=== PATIENT | female | born 1980 | race Caucasian/White ===

== ENCOUNTER 2017-02-06 22:53 | Inpatient (IN) | payer MEDICAID ==
[2017-02-06 23:12] VITALS: BP 100/59
[2017-02-07 09:38] LABS: % BASOPHILS 0.7 % (0.0-2.0); % EOSINOPHILS 4.8 % (0.0-5.0); % LYMPHOCYTES 21.8 % (20.0-50.0); % MONOCYTES 7.1 % (2.0-10.0); % NEUTROPHILS 65.6 % (40.0-80.0); HEMATOCRIT 30.6 % (35.0-45.0); MEAN CELL VOLUME 72.1 fl (81-100); MEAN CORPUSCULAR HEMOGLOBIN 23.5 pg (27.0-31.0); MEAN CORPUSCULAR HGB CONC 32.7 pg (28.0-36.0); MEAN PLATELET VOLUME 6.5 fl; NEUTROPHILE ABSOLUTE 4.7 Th/cmm (1.8-8.0); PLATELET COUNT 276 Th/cmm (150-400); RED BLOOD COUNT 4.24 Mil/cmm (3.80-5.10); RED CELL DISTRIBUTION WIDTH 16.5 % (11.5-20.0); WHITE BLOOD COUNT 7.3 Th/cmm (4.8-10.8)
[2017-02-07 09:58] LABS: ALB/GLOB RATIO 1.5 (1.0-1.8); ALKALINE PHOSPHATASE 57 U/L (34-104); ANION GAP 0.9 (7.0-16.0); BILIRUBIN,TOTAL 0.5 mg/dL (0.3-1.0); BUN - UREA NITROGEN 17 mg/dL (7-25); BUN/CREATININE RATIO 24.3; CALCIUM SERUM 9.3 mg/dL (8.6-10.3); CARBON DIOXIDE 25.7 mEq/L (21.0-31.0); CHLORIDE 111 mEq/L (98-107); CREATININE - SERUM 0.7 mg/dL (0.6-1.2); GLUCOSE 77 mg/dL (70-105); POTASSIUM SERUM 3.6 mEq/L (3.5-5.1); SGOT 15 U/L (13-39); SGPT/ALT 11 U/L (7-52); SODIUM SERUM 134 mEq/L (136-145)
[2017-02-07] MEDS ORDERED: Hydrocodone/APAP 10 mg/325 mg Tab PO PRN (12:02)
[2017-02-07] MEDS ORDERED: Magnesium Hydroxide (MOM) 30 mL UDC PO PRN (12:02)
[2017-02-07] MEDS ORDERED: Maalox 30 mL Cup PO PRN (12:02)
--- NOTE | 2017-02-07 15:25 | History & Physical ---
CHIEF COMPLAINT: Rule out TIA. HISTORY OF PRESENT ILLNESS: The patient is a 36-year-old female who presented to [facility] with left arm, leg and facial numbness. The patient developed weakness in left arm and leg while driving approximately 1730 yesterday. Complains if mild dizziness. The patient states she also has slurred speech. The patient recalls some chest pain, onset of symptoms, but no shortness of breath, diabetes, nausea, vomiting. The patient denies headache or blurry vision. ALLERGIES: No known allergies. SOCIAL HISTORY: No reports of smoking or drug use. MEDICATIONS: See medical form. PAST MEDICAL HISTORY: Negative. REVIEW OF SYSTEMS: See history of present illness. PHYSICAL EXAMINATION: GENERAL: The patient is awake, alert, nontoxic in appearance. VITAL SIGNS: On admission are as follows: Temperature 98.2, pulse 76, blood pressure per nursing, respiratory rate 18, O2 sat on room air. HEENT: Normocephalic, atraumatic. Extraocular movements intact. Oropharynx clear. NECK: Supple. No thyromegaly. No lymphadenopathy. RESPIRATORY: Clear. No wheezes or rhonchi. CARDIOVASCULAR: S1, S2. No murmurs, rubs, or gallops. GASTROINTESTINAL: Soft, nontender, nondistended. Positive bowel sounds. GENITOURINARY: No CVA tenderness. No suprapubic tenderness. BACK: No midline tenderness. EXTREMITIES: Equal pulses bilaterally. No cyanosis, clubbing. NEUROLOGIC: Cranial nerves 2 through intact. Extraocular movements are intact. Sensation intact. Neurovascular intact. Bilateral muscle strength grossly normal. At [facility], the patient had lower facial droop. LABORATORY DATA: On admission, CBC: WBC of 7.3, hemoglobin 10.0, hematocrit 30.6, platelet count of 276. No left shift noted. Chemistry, sodium 134, potassium 3.6, chloride 111, bicarbonate 25, anion gap 0.9, BUN 17, creatinine 0.7. GFR is more than 60. Glucose 77, calcium is 9.3, total bilirubin 0.5, AST 15, ALT 11, alkaline phosphatase is 57, creatinine kinase 51, troponin 0.01. Total protein 7.1, albumin 4.2, globulin 2.9. CT scan done at [facility] showed no significant abnormality. The patient had an evaluation by Neurology at [facility], concern with possible TIA vs psychogenic. RECOMMENDATION: To start the patient on antithrombotics with aspirin 325 mg daily. Obtain liver panel. We will start the patient on statin and will manage the patient's blood pressure. Also recommendation from Neurology for echo, MRI, MRA and rehabilitation. The patient admitted to telemetry unit, seen by Dr. Vicki Cottrell. We will obtain Neurology and Cardiology consultation. Follow recommendations from Neurology at [facility]. JOB# [id number] MTDD
[2017-02-08 07:39] LABS: % BASOPHILS 0.8 % (0.0-2.0); % EOSINOPHILS 7.8 % (0.0-5.0); % LYMPHOCYTES 27.2 % (20.0-50.0); % MONOCYTES 6.9 % (2.0-10.0); % NEUTROPHILS 57.3 % (40.0-80.0); HEMATOCRIT 30.6 % (35.0-45.0); HEMOGLOBIN 10.1 gm/dL (11.7-15.5); MEAN CELL VOLUME 72.1 fl (81-100); MEAN CORPUSCULAR HEMOGLOBIN 23.8 pg (27.0-31.0); MEAN CORPUSCULAR HGB CONC 33.1 pg (28.0-36.0); MEAN PLATELET VOLUME 7.7 fl; NEUTROPHILE ABSOLUTE 4.3 Th/cmm (1.8-8.0); PLATELET COUNT 279 Th/cmm (150-400); RED BLOOD COUNT 4.24 Mil/cmm (3.80-5.10); RED CELL DISTRIBUTION WIDTH 15.9 % (11.5-20.0); WHITE BLOOD COUNT 7.5 Th/cmm (4.8-10.8)
[2017-02-08 08:04] LABS: ANION GAP 9.2 (7.0-16.0); BUN - UREA NITROGEN 20 mg/dL (7-25); BUN/CREATININE RATIO 28.6; CARBON DIOXIDE 21.7 mEq/L (21.0-31.0); CHLORIDE 108 mEq/L (98-107); CREATININE - SERUM 0.7 mg/dL (0.6-1.2); GLUCOSE 93 mg/dL (70-105); POTASSIUM SERUM 3.9 mEq/L (3.5-5.1); SODIUM SERUM 135 mEq/L (136-145)
[2017-02-08 11:47] LABS: CHOLESTEROL 124 mg/dL (<200); TRIGLYCERIDES 112 mg/dL (<150)
--- NOTE | 2017-02-08 16:10 | Consultation ---
REFERRING PHYSICIAN: Dr. Vicki Cottrell. This patient was seen at the courtesy of Dr. Vicki Cottrell as the patient is coming with chest pain and also possible TIA. She was admitted at [facility] with history of having sudden onset of left arm, leg and face numbness and weakness also in the left arm and the leg while driving. It was associated with mild dizziness. She has workup done over there and CT scan did not show any acute changes. She was offered tPA, but she refused. In view of that, no further treatment was given on acute basis, so the patient was transferred here. On coming over here, she has been complaining of chest pain on the left side. According to the history, she never had this pain before and this pain is like a sharp to squeezing type and it is localized. No association with any thing. Pain is not related to any position or swallowing or eating, but hurts when she touches that area or taking the deep breath. No other associated symptoms like feeling short of breath, dizzy, lightheaded, nausea, vomiting, cold, sweats, fevers, chills or rigors. She denies of any similar type of pain before. PAST MEDICAL HISTORY: No history of hypertension, diabetes mellitus, or any other medical problems. MEDICATIONS: None. ALLERGIES: No known drug allergies. REVIEW OF SYSTEMS: Some allergies and itching and some hyperpigmentation of the skin, which has been getting treatment through her primary care physician. PHYSICAL EXAMINATION: VITAL SIGNS: Normal. Temperature 97.6, heart rate 61-70s range, respiratory rate 17-19 range, and O2 sat is 99% on room air, blood pressure is 103/50. HEENT: Normal. NECK: Supple. JVP is flat. No lymphadenopathy. Thyroid not palpable. Carotids are equally palpable, but no bruit. LUNGS: Equal bilaterally with chest wall tenderness present and reproducible pain on the left anterior chest area and pectoral muscle, which is reproducible. Similar type of pain as she has been describing in the same area. Lungs are clinically clear. CARDIOVASCULAR: PMI not palpable. Heart sounds are normal. No gallop or murmur is appreciated. ABDOMEN: Soft, no palpable mass. CENTRAL NERVOUS SYSTEMS: Grossly normal. EXTREMITIES: No edema. No cyanosis. Peripheral pulses are equal bilaterally. EKG was normal sinus rhythm. No acute changes were seen. IMPRESSION: 1. Chest pain, atypical, doubt any acute coronary syndrome as troponins x 2 are normal, waiting for the third one. This is secondary to anterior chest wall syndrome. I doubt any acute coronary syndrome. 2. Cardiac risks factors are none. PLAN: I agree with present management. I will do this serial troponin, EKG, also get the echocardiogram done to evaluate any underlying mitral valve disorder especially in view of questionable TIA. Also, rule out any other underlying cardiac etiology for the TIA or embolic versus thrombotic. The patient will also be monitored closely for any conduction abnormalities. No atrial fibrillation. although has not been shown at all. We will get EKGs and echocardiogram as mentioned. Pain management. Correction of electrolytes as needed. Further workup and management will be initiated as needed form cardiac point of view. Thank you very much Dr. Finch for this kind referral and I will along with you during her acute cardiac problems. JOB# [id number] MTDD
[2017-02-08] MEDS: Hydrocodone/APAP 5mg/325mg Tab PO PRN (17:42)
--- NOTE | 2017-02-08 18:20 | Cardiology ---
PROCEDURE: Echocardiogram. REFERRING PHYSICIAN: Stef Cottrell M.D. INDICATIONS: TIA, chest pain and palpitations. M-Mode measurements are as follows. Aortic root dimension in diastole is 2.5 cm. Aortic valve systolic separation is 2.0 cm. Left atrial dimension in systole is 3.3 cm. EP septal separation is 0.47 cm and mitral valve E/A ratio is 1.7. Left ventricular dimension in diastole is 4.6 and in systole 3.1 cm with ejection fraction of 61%. Interventricular septal thickness in diastole 1.0 cm and LV posterior wall thickness in diastole is 0.9 cm. Doppler and color Doppler shows that all chambers are normal in dimension. LV dimension and second wall motion are normal. No pericardial effusion is present. All the valves are normal in thickness and motion in end diastole as well as end systole. Left ventricular outflow tract VMax is 1.14 meter per second and aortic valve VMax is 1. meter per second. Aortic valve systolic pressure gradient is 9 mmHg. Right ventricular systolic pressure is 27.8 mmHg. CONCLUSION: 1. LV dimension and second wall motion are normal with ejection fraction of 61%. 2. Mild pulmonary hypertension present. 3. Otherwise normal study for the age. JOB# [id number]
--- NOTE | 2017-02-09 03:02 | Consultation ---
HISTORY OF PRESENT ILLNESS: This is 36-year-old female. She was driving. She started feeling kind of numbness on the left side. She started feeling tightness on the chest. She felt dizzy, kind of unsteady. She felt the speech was slurred. She felt kind of legs were weak. She had difficulty with coordination. The patient says her symptoms lasted for sometime. Went to [facility] and transferred here. PAST MEDICAL HISTORY: She is doing well otherwise, no major medical problems. PAST SURGICAL HISTORY: None. REVIEW OF SYSTEMS: On direct questioning with the patient. No marked headache. Chest pain as above, paraesthesias, numbness, tingling, dizziness and weakness as above. No abdominal pain and no nausea or vomiting. PHYSICAL EXAMINATION: VITAL SIGNS: Temperature 98.4, blood pressure 130/72 and pulse is 76. NECK: Supple. No bruits. CARDIOVASCULAR: Heart sounds S1 and S2. LUNGS: Clear. ABDOMEN: Soft. NEUROLOGIC: The patient is awake and alert. She speaks mainly Dominican, by the business applications developer she gives history. She knew what day, month and year. CRANIAL NERVES: Pupils react to light. Full eye movement. No nystagmus. No facial weakness. MOTOR: She lifts both arms up. No weakness. Legs equal reflexes 1+. INVESTIGATIONS: CT scan head negative. IMPRESSION: The patient with ____ symptoms consistent with possible in the posterior circulation with paresthesia, weakness and coordination. Chest pain. MANAGEMENT: The patient is young with no clear-cut predisposing etiologies to confer her symptomology. We will get an MRI of brain done and MRA head and neck. I would recommend the patient have cardiac evaluation also. I will go ahead and do a lipid profile. The patient on antiplatelet medications for the time being. JOB# [id number]
--- NOTE | 2017-02-09 04:18 | Admit Criteria Form ---
Admit Criteria Forms - Admit Criteria Diagnosis: TELEMETRY CARE Telemetry Admission Guidelines (Place 'X' for any and all applicable criteria): Admission to telemetry [A] may be indicated for ANY ONE of the following(1)(2)(3 )(4)(5): [ ]I. Cardiac disease, including ANY ONE of the following (9)(10)(11)(12)(13 ): [ ]a) Postacute AZ [ ]b) Low-risk patients with ST-segment elevation AZ who have undergone successful percutaneous coronary intervention [ ]c) Unstable angina [ ]d) Suspected AZ (until it is ruled out) [ ]e) Post cardiac surgery (first 48 to 72 hours unless complications occur) [ ]f) Acute arrhythmias (including significant tachycardia or bradycardia) [B] [ ]g) Firing of an implantable cardioverter defibrillator [C] [ ]h) Suspected pacemaker or implantable cardioverter defibrillator malfunction (10) [ ]i) New administration or adjustment of an antiarrhythmic drug [D ] [ ]j) Child admitted for acute congestive heart failure [ ]j) Long QT syndrome [ ]k) Advanced heart block (eg, second-degree Mobitz type II, third- degree heart block) [ ]l) Acute myocarditis or pericarditis [ ]m) Short-term (ambulatory or inpatient) monitoring after a cardiac procedure as indicated by ANY ONE of the following [E]: [ ]i) Electrophysiologic studies [ ]ii) Percutaneous coronary intervention with stent placement [ ]iii) Pacemaker placement with cardiac conduction defect [ ]iv) Implantable cardiac defibrillator placement [ ]II. Drug overdose or poisoning with substance that causes arrhythmias or QT prolongation (eg, phenothiazines, sympathomimetic agents, cyclic antidepressants, digitalis, antiarrhythmic drugs)(15) [ ]III. Short-term (ambulatory or inpatient) monitoring after therapeutic or diagnostic procedure requiring conscious sedation or anesthesia (eg, endoscopy, elective cardioversion) [X ]IV. Acute cerebrovascular even[F](18) [ ]V. Massive blood transfusion (eg, at least 10 units of packed red blood cells in 24 hours) [ ]. Variceal bleeding after endoscopy, sclerotherapy, or IV vasopressin [ ]VII. Uncorrected electrolyte abnormalities associated with an increased risk of dangerous arrhythmia [G]; examples include [ ]a) Hyperkalemia with attributable ECG changes [ ]b) Potassium greater than 6.5 mmol/L (mEq/L) in a patient without history of chronic renal disease [ ]c) Prolonged QT attributed to hypokalemia, hypomagnesemia, or hypocalcemia [ ]VIII.Unexplained syncope or other neurologic event suspected of being due to arrhythmia due to a finding that increases risk; examples include(19)(20)(21): [ ]a) High-risk ECG findings (eg, bifascicular block, bradycardia, abnormal QT interval, ventricular pre- excitation) [ ]b) History of previous syncope due to arrhythmia [ ]c) Abnormal ventricular function (eg, reduced ejection fraction ) [ ]d) Exertional or supine syncope [ ]e) Concerning syncope characteristics (eg, sudden loss of consciousness without prodrome) [ ]f) Family history of sudden [ ]g) Use of arrhythmogenic medication [ ]h) Suspected cardiac ischemia [ ]i) Known channelopathy (eg, long QT syndrome, Brugada syndrome, or catecholaminergic paroxysmal ventricular tachycardia) [ ]j) Known structural heart disease (eg, hypertrophic cardiomyopathy , severe valvular disease) [ ]k) Palpitations preceding syncope The original [email or web address] content created by [email or web address] has been revised. The portions of the content which have been revised are identified through the use of italic text or in bold, and [facility] has neither reviewed nor approved the modified material. All other unmodified content is copyright [email or web address]. Please see references footnoted in the original [email or web address] edition 2016 Admit Criteria Met?: Yes
[2017-02-09 07:13] LABS: % BASOPHILS 0.7 % (0.0-2.0); % EOSINOPHILS 6.4 % (0.0-5.0); % LYMPHOCYTES 25.8 % (20.0-50.0); % MONOCYTES 5.8 % (2.0-10.0); % NEUTROPHILS 61.3 % (40.0-80.0); HEMATOCRIT 31.2 % (35.0-45.0); HEMOGLOBIN 10.3 gm/dL (11.7-15.5); MEAN CELL VOLUME 72.7 fl (81-100); MEAN PLATELET VOLUME 7.1 fl; NEUTROPHILE ABSOLUTE 5.1 Th/cmm (1.8-8.0); PLATELET COUNT 274 Th/cmm (150-400); RED CELL DISTRIBUTION WIDTH 16.3 % (11.5-20.0); WHITE BLOOD COUNT 8.3 Th/cmm (4.8-10.8)
[2017-02-09 07:30] LABS: ANION GAP 9.7 (7.0-16.0); BUN - UREA NITROGEN 24 mg/dL (7-25); CALCIUM SERUM 9.1 mg/dL (8.6-10.3); CARBON DIOXIDE 25.2 mEq/L (21.0-31.0); CHLORIDE 106 mEq/L (98-107); CREATININE - SERUM 0.6 mg/dL (0.6-1.2); GLUCOSE 93 mg/dL (70-105); POTASSIUM SERUM 3.9 mEq/L (3.5-5.1); SODIUM SERUM 137 mEq/L (136-145)
--- NOTE | 2017-02-09 09:53 | Progress Notes ---
DATE: 02/08/2017 SUBJECTIVE: The patient is awake and alert. The patient complains of right chest pain on left precordial site. The patient has been evaluated by Neurology. The patient ordered for MRI by Neurology. The patient is receiving inpatient rehab therapy. OBJECTIVE: VITAL SIGNS: Temperature is 98.6, pulse 61, blood pressure per nursing, respiratory rate 19, and O2 sat is 99% on room air. CARDIOVASCULAR: S1 and S2. RESPIRATORY: Clear. GASTROINTESTINAL: Soft. Positive bowel sounds. LABORATORY DATA: Hematology: WBC is 7.5, hemoglobin peer labs, hematocrit per labs, platelet count of 239, and 7% eosinophils. Chemistry: Sodium 135, potassium 3.9, chloride 108, bicarb 21, anion gap 9.2, BUN 20, and creatinine 0.7. GFR more than 60, glucose 93, and calcium 9.0. MICROBIOLOGY: MRSA screening from February 06 negative. RADIOLOGY: No new results. ASSESSMENT: 1. Possible transient ischemic attack. 2. Chest pain (rule out acute coronary syndrome). 3. Anemia. 4. Hyponatremia. PLAN: Continue current medication and treatment. Obtain labs in a.m. Awaiting MRI results. Further recommendations per consultations. JOB# [id number] LATHA
[2017-02-09] MEDS ORDERED: IOHEXOL 300MG/ML 100 ML VIAL IVP ONE (11:00)
[2017-02-09] MEDS ORDERED: IOHEXOL 300MG/ML 50 ML VIAL PO ONE (11:00)
[2017-02-10 05:56] LABS: % BASOPHILS 0.9 % (0.0-2.0); % EOSINOPHILS 6.7 % (0.0-5.0); % LYMPHOCYTES 25.8 % (20.0-50.0); % MONOCYTES 6.7 % (2.0-10.0); % NEUTROPHILS 59.9 % (40.0-80.0); HEMATOCRIT 29.9 % (35.0-45.0); HEMOGLOBIN 9.7 gm/dL (11.7-15.5); MEAN CELL VOLUME 72.2 fl (81-100); MEAN CORPUSCULAR HEMOGLOBIN 23.5 pg (27.0-31.0); MEAN CORPUSCULAR HGB CONC 32.5 pg (28.0-36.0); NEUTROPHILE ABSOLUTE 4.8 Th/cmm (1.8-8.0); PLATELET COUNT 296 Th/cmm (150-400); RED BLOOD COUNT 4.15 Mil/cmm (3.80-5.10); RED CELL DISTRIBUTION WIDTH 16.1 % (11.5-20.0); WHITE BLOOD COUNT 7.9 Th/cmm (4.8-10.8)
[2017-02-10 06:10] LABS: ANION GAP 9.1 (7.0-16.0); BUN - UREA NITROGEN 21 mg/dL (7-25); CARBON DIOXIDE 22.8 mEq/L (21.0-31.0); CHLORIDE 107 mEq/L (98-107); CREATININE - SERUM 0.6 mg/dL (0.6-1.2); GLUCOSE 102 mg/dL (70-105); POTASSIUM SERUM 3.9 mEq/L (3.5-5.1); SODIUM SERUM 135 mEq/L (136-145)
[2017-02-10] MEDS: Hydrocodone/APAP 5mg/325mg Tab PO PRN (08:06)
--- NOTE | 2017-02-10 09:02 | Diagnostic Imaging Report ---
CT angiogram with intravenous contrast carotid arteries (CTA) HISTORY: Stroke, CVA Total DLP equals 1373 CTDI equals 80.0 Following administration of intravenous contrast, axial sections were obtained from the aortic arch up through the base of the skull. The exam of the right side demonstrates a normal caliber of the common carotid artery. No significant narrowing or stenosis identified. No abnormality seen in the region of the right carotid bulb. No significant narrowing involves the right internal or proximal external carotid arteries. Normal opacification of the vertebral arteries. The exam of the left side demonstrates a normal caliber with no significant narrowing through the common carotid artery region. No significant narrowing or stenosis involves the left internal or proximal external carotid arteries. Normal opacification of the left vertebral artery. IMPRESSION: 1. Negative examination. No significant focal narrowing or stenosis through the bifurcation region.
--- NOTE | 2017-02-10 09:05 | Diagnostic Imaging Report ---
CT angiogram of the brain with and without intravenous contrast HISTORY: Stroke, CVA Total DLP equals 1373 CTDI equals 80.0 Axial sections were obtained from the base of the skull to the vertex prior to administration of images contrast. Subsequent axial sections were obtained from the base of the skull to the vertex following contrast demonstration. Images obtained through the arterial phase of the injection. There is a normal ventricular system size. No focal parenchymal abnormalities. No intracerebral hemorrhage. No mass effect or shift of midline structures. No extra-axial masses or abnormal fluid collections. Following contrast administration, the exam demonstrates normal opacification of the internal carotid arteries bilaterally. Normal opacification through the intracavernous portions of the internal carotid arteries. The posterior communicating arteries are not well visualized within the ione of Estrada. No other focal abnormalities. No aneurysms identified. Normal positioning of the anterior and middle cerebral arteries. Normal opacification of the distal vertebral and basilar arteries at the base of the skull. No abnormal foci or regions of enhancement within the brain following contrast administration. No vascular malformations identified. IMPRESSION: 1. Normal examination
[2017-02-11 12:15] LABS: INTERPRETATION Comment:; PTT-LA 46.5 sec (0.0-43.6); PTT-LA INCUBATED MIX 40.1 sec (0.0-40.6)
--- NOTE | 2017-02-12 00:22 | Discharge Summary ---
DATE OF DISCHARGE: 02/10/2017 DISCHARGE DIAGNOSES: 1. Possible transient ischemic attack. 2. Chest pain, resolved. 3. Acute coronary syndrome ruled out. 4. Anemia. 5. Hyponatremia. HOSPITAL COURSE: The patient is a 36-year-old female who was transferred from [place] from the ER to [facility]. The patient may be diagnosed of possible transient ischemic attack, chest pain, rule out acute coronary syndrome, numbness, dizziness. The patient was admitted to telemetry unit. Neurology consultation obtained from Dr. Ratliff. Cardiology obtained from Dr. Merced Cottrell. The patient had echocardiogram done, which showed left ventricular dimension and wall motion are normal with ejection fraction 61 %. Mild pulmonary hypertension present. Otherwise, normal study for age. CT of the head with contrast shows normal examination. Carotid CT with contrast was a negative examination. After clearance by Cardiology, the patient was discharged home on aspirin 325 mg p.o. daily. The patient is advised to follow with the PMD, PCP and necessary to obtain MRI and MRA as outpatient. JOB# [id number] LATHA
--- NOTE | 2017-02-12 16:27 | Progress Notes ---
DATE: 02/09/2017 SUBJECTIVE: The patient is awake, alert. No report of chest pain. No report of headache. OBJECTIVE: VITAL SIGNS: On admission, temperature 97.4, pulse 69, blood pressure per nursing, respirations 20, pulse oximetry 97% on room air. CARDIOVASCULAR: S1, S2. RESPIRATORY: Clear. GASTROINTESTINAL: Soft, positive bowel sounds. LABORATORY DATA: Hematology, WBC 8.3, hemoglobin 10.3, hematocrit 31.2, platelet count of 274. Chemistry, sodium per labs, potassium per labs, chloride per labs, bicarb per labs, anion gap 9.7, BUN per labs, creatinine 0.6. GFR more than 60. Glucose is 93, calcium 9.1. Awaiting CT of brain and CT of neck results. ASSESSMENT: 1. Chest pain (atypical) anterior chest wall syndrome. 2. Acute coronary syndrome (ruled out). 3. Possible transient ischemic attack. 4. Anemia. PLAN: Continue current medication and treatment. Awaiting CT of brain and CT of neck results. The patient would be cleared from cardiac point of view to be discharged. Further recommendations per consults. We will discharge the patient if CT scans are negative. JOB# [id number] LATHA
== END 2017-02-10 11:25 | disposition home or self-care (01) | DRG 47 ==
LOC: MSI 22:53 → TELE 23:00
PROVIDERS: ADMIT Preventive Medicine Preventive Medicine/Occupational Environmental Medicine; ATTEND Preventive Medicine Preventive Medicine/Occupational Environmental Medicine
DX: G45.9 Transient cerebral ischemic attack, unspecified (principal); E87.1 Hypo-osmolality and hyponatremia; D64.9 Anemia, unspecified; R20.9 Unspecified disturbances of skin sensation; R07.89 Other chest pain
CPT/HCPCS: 36415-UA; 70498-TC; 80048-TC; 80053-TC; 80061-TC; 82550-TC; 84484-TC; 85025-TC; 85613; 85613-90; 85652-TC; 85730-90; 86141-TC; 93005; J2060; Q9967; Z7610